=== PATIENT | female | born 1985 | race Caucasian/White ===

== ENCOUNTER → 2016-12-18 | Outpatient (CLI) | payer BC ==
--- NOTE | 2016-12-18 13:03 | CPEKG ---
Heart Rate: 63 RR Interval: 952 P-R Interval: 136 QRSD Interval: 92 QT Interval: 404 QTC Interval: 414 P [place]: 68 QRS [place]: -42 T Wave [place]: 71 EKG Severity - OTHERWISE NORMAL ECG - EKG Impression: SINUS RHYTHM EKG Impression: LEFT AXIS DEVIATION Electronically Signed By: Jose Jain 18-Dec-2016 13:28:19
== END ==
LOC: FCP 11:31
PROVIDERS: ATTEND Family Medicine
DX: R01.1 Cardiac murmur, unspecified (principal); R00.2 Palpitations